=== PATIENT | female | born 1960 | race Caucasian/White ===

== ENCOUNTER 2018-06-17 11:47 | Emergency (ER) | payer OTHER ==
[2018-06-17 12:39] VITALS: BP 108/73
--- NOTE | 2018-06-17 12:55 | UC ---
Throat Pain/Nasal Anand HPI - HPI Summary HPI Summary: Pt c/o URI like symptoms that have not improved over the last 2-3 weeks, cough, sinus pressure and fatigue. . Pt has hx of sinusitis and chronic "sinus problems" Pt also,c/o fatigue. - History of Current Complaint Chief Complaint: UCRespiratory Stated Complaint: COLD SX'S Time Seen by Provider: 06/17/18 12:49 Hx Obtained From: Patient Hx Last Menstrual Period: age 50 ?: No Onset/Duration: Gradual Onset, Lasting Weeks, Still Present Severity: Moderate Pain Intensity: 0 Cough: Productive Associated Signs & Symptoms: Positive: Sinus Discomfort Related History: Prior ENT Surgery - Epiglottits Risk Factors Epiglottis Risk Factors: Negative - Allergies/Home Medications Allergies/Adverse Reactions: Allergies Allergy/AdvReac Type Severity Reaction Status Date / Time Penicillins Allergy Swelling Verified 06/17/18 12:40 cat, tree Allergy Congestion Uncoded 06/17/18 12:40 PMH/Surg Hx/FS Hx/Imm Hx Previously Healthy: Yes - Surgical History Surgical History: Yes Surgery Procedure, Year, and Place: [place]OM[place]- 1973- [place]. [id number] [place]. SINUS SURGERIES- 1997- [place]. TUBAL LIGATION- 1985. TUBAL REVERSAL- 2002. 2012 LAPAROSCOPIC GASTRIC BYPASS, [facility] [place] - Family History Known Family History: Positive: Cardiac Disease - Social History Occupation: Employed Full-time Lives: With Family Alcohol Use: None Substance Use Type: None Smoking Status (MU): Former Smoker Have You Smoked in the Last Year: No When Did the Patient Quit Smoking/Using Tobacco: 2008 Review of Systems All Other Systems Reviewed And Are Negative: Yes Constitutional: Positive: Fatigue Skin: Positive: Negative Eyes: Positive: Negative ENT: Positive: Nasal Discharge, Sinus Congestion, Sinus Pain/Tenderness Respiratory: Positive: Cough Cardiovascular: Positive: Negative Gastrointestinal: Positive: Negative Genitourinary: Positive: Negative Motor: Positive: Negative Neurovascular: Positive: Negative Musculoskeletal: Positive: Negative Neurological: Positive: Headache Psychological: Positive: Negative Is Patient Immunocompromised?: No Physical Exam Triage Information Reviewed: Yes Appearance: Ill-Appearing Vital Signs: Initial Vital Signs Temp 97.5 F 06/17/18 12:31 Pulse 71 06/17/18 12:31 Resp 18 06/17/18 12:31 BP 108/73 06/17/18 12:31 Pulse Ox 100 06/17/18 12:31 Vital Signs Reviewed: Yes Eye Exam: Normal ENT: Positive: Nasal congestion, Sinus tenderness Dental Exam: Normal Neck exam: Normal Respiratory Exam: Normal Respiratory: Positive: Normal breath sounds Cardiovascular Exam: Normal Musculoskeletal Exam: Normal Neurological Exam: Normal Psychological Exam: Normal Skin Exam: Normal Throat Pain/Nasal Course/Dx - Differential Dx/Diagnosis Differential Diagnosis/HQI/PQRI: Influenza, Sinusitis, URI Provider Diagnosis: Sinusitis, Cough in adult Discharge - Sign-Out/Discharge Documenting (check all that apply): Patient Departure All imaging exams completed and their final reports reviewed: No Studies - Discharge Plan Condition: Stable Disposition: HOME Prescriptions: Azithromycin TAB* [Zithromax TAB (Z-JACQUELINE) 250 mg #6 tabs] 2 tab PO .TODAY, THEN 1 DAILY #1 jacqueline Guaifenesin/Pseudoephedrne HCl [Mucinex D ER 600-60 mg Tablet] 1 each PO Q12H # 14 tab.er.12h predniSONE TAB* [Deltasone 20 MG TAB*] 20 mg PO DAILY #3 tab Patient Education Materials: Sinusitis (ED), Acute Cough (ED) Referrals: Eloy George MD [Primary Care Provider] - If Needed - Billing Disposition and Condition Condition: STABLE Disposition: Home
== END 2018-06-17 13:14 | disposition home or self-care (01) ==
LOC: UCCORT 11:47
DX: J32.9 Chronic sinusitis, unspecified (principal); R05 Cough; Z88.0 Allergy status to penicillin; Z87.891 Personal history of nicotine dependence
CPT/HCPCS: 99212; G0463

== ENCOUNTER → 2018-09-06 20:07 | Emergency (ER) | payer OTHER ==
[2018-09-06 20:46] LABS: ABS Basophils 0 10^3/ul (0-0.2); ABS Eosinophils 0.1 10^3/ul (0-0.6); ABS Lymphocytes 2.6 10^3/ul (1.0-4.8); ABS Monocytes 0.4 10^3/ul (0-0.8); ABS Neutrophils 3.7 10^3/ul (1.5-7.7); ABS Nucleated RBC 0 10^3/ul; Hematocrit 42 % (33-41); Hemoglobin 13.7 g/dL (12.0-16.0); Lymphocyte % 38.5 %; Mean Corpuscular HGB Conc 33 g/dL (31-36); Mean Corpuscular Hemoglobin 30 pg (27-31); Mean Corpuscular Volume 93 fL (80-97); Nucleated Red Blood Cells % 0.1; Platelet Count 195 10^3/uL (150-450); Red Cell Distribution Width 14 % (10.5-15); White Blood Count 6.9 10^3/uL (3.5-10.8)
[2018-09-06 20:52] LABS: INR 0.94 (0.77-1.02)
[2018-09-06 21:06] LABS: Albumin 4.5 g/dL (3.2-5.2); Albumin/Globulin Ratio 1.9 (1-3); BUN/Creatinine Ratio 22.6 (8-20); Calcium 9.8 mg/dL (8.6-10.3); EGFR African American 84.9 (>60); EGFR Non-African American 70.1 (>60); Globulin 2.4 g/dL (2-4); Total Bilirubin 0.4 mg/dL (0.2-1.0); Total Protein 6.9 g/dL (6.4-8.9)
[2018-09-06 21:52] LABS: TSH (Thyroid Stimulating Horm) 1.39 mcIU/mL (0.34-5.60)
[2018-09-06 22:05] LABS: Potassium 4.7 mmol/L (3.5-5.0)
--- NOTE | 2018-09-06 22:22 | ED ---
HPI Chest Pain - HPI Summary HPI Summary: This patient is a 57 year old F presenting to [facility] with a chief complaint of intermittent dull, aching left anterior chest pain radiating to her left shoulder since 1 month ago. The patient rates the pain 5/10 in severity. She saw her family doctor today who referred her here. Patient had a stress test last year which she passed. She is not on any medications currently. - History of Current Complaint Chief Complaint: EDChestPainROMI Time Seen by Provider: 09/06/18 21:58 Hx Obtained From: Patient Hx Last Menstrual Period: age 50 Onset/Duration: Started Weeks Ago - 1 month ago, Still Present Timing: Intermittent Initial Severity: Moderate Current Severity: Moderate Pain Intensity: 5 Pain Scale Used: 0-10 Numeric Chest Pain Location: Discrete at:, Left Anterior Chest Pain Radiates: Yes Chest Pain Radiates To:: Shoulder - Left Character: Other: - dull and aching Associated Signs and Symptoms: Positive: Chest Pain - intermittent dull, aching left anterior chest pain radiating to her left shoulder - Allergy/Home Medications Allergies/Adverse Reactions: Allergies Allergy/AdvReac Type Severity Reaction Status Date / Time Penicillins Allergy Swelling Verified 09/06/18 20:28 cat, tree Allergy Congestion Uncoded 09/06/18 20:28 PMH/Surg Hx/FS Hx/Imm Hx Endocrine/Hematology History: Denies: Hx Bone Marrow Disease, Hx Diabetes - 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, Hx Sickle Cell Disease, Hx Anemia Cardiovascular History: Denies: Hx Hypertension Respiratory History: Reports: Hx Sleep Apnea - FOR ABOUT 3 YEARS GI History: Reports: Hx Gastroesophageal Reflux Disease - CONTROL WITH MEDICATION, Hx Ulcer - HISTORY OF History: Denies: Hx Renal Disease Musculoskeletal History: Reports: Hx Arthritis - MINOR Sensory History: Reports: Hx Contacts or Glasses - GLASSES Denies: Hx Hearing Aid Opthamlomology History: Reports: Hx Contacts or Glasses - GLASSES Neurological History: Reports: Hx Headaches - HISTORY OF Psychiatric History: Reports: Hx Anxiety - ON MEDICATION, Hx Depression - ON MEDICATION - Surgical History Surgery Procedure, Year, and Place: APPENDECTOMY- 1973- . [id number] [place]. SINUS SURGERIES- 1997- AND [place] 2007. TUBAL LIGATION- 1985. TUBAL REVERSAL- 2002. 2011 [place]IC [place] [facility] [place] Anesthesia Reactions: No Infectious Disease History: No Infectious Disease History: Denies: Traveled Outside the [place] in Last 30 Days Comment Only: Hx Clostridium Difficile - TO BE TESTED FOR ON 04/03/12 - Family History Known Family History: Positive: Cardiac Disease - Social History Alcohol Use: None Substance Use Type: Reports: None Smoking Status (MU): Former Smoker Have You Smoked in the Last Year: No Review of Systems Negative: Fever Positive: Chest Pain - intermittent dull, aching left anterior chest pain radiating to her left shoulder All Other Systems Reviewed And Are Negative: Yes Physical Exam - Summary Physical Exam Summary: VITAL SIGNS: Reviewed. GENERAL: Patient is a well-developed and nourished FEMALE who is lying comfortable in the stretcher. Patient is not in any acute respiratory distress. HEAD AND FACE: No signs of trauma. No ecchymosis, hematomas or skull depressions. No sinus tenderness. EYES: PERRLA, EOMI x 2, No injected conjunctiva, no nystagmus. EARS: Hearing grossly intact. Ear canals and tympanic membranes are within normal limits. MOUTH: Oropharynx within normal limits. NECK: Supple, trachea is midline, no adenopathy, no JVD, no carotid bruit, no c- spine tenderness, neck with full ROM. CHEST: Symmetric, no tenderness at palpation LUNGS: Clear to auscultation bilaterally. No wheezing or crackles. CVS: Regular rate and rhythm, S1 and S2 present, no murmurs or gallops appreciated. ABDOMEN: Soft, non-tender. No signs of distention. No rebound no guarding, and no masses palpated. Bowel sounds are normal. EXTREMITIES: FROM in all major joints, no edema, no cyanosis or clubbing. NEURO: Alert and oriented x 3. No acute neurological deficits. Speech is normal and follows commands. SKIN: Dry and warm Triage Information Reviewed: Yes Vital Signs On Initial Exam: Initial Vitals Temp Pulse Resp BP Pulse Ox 96.8 F 58 16 118/93 99 09/06/18 20:20 09/06/18 20:20 09/06/18 20:20 09/06/18 20:20 09/06/18 20:20 Vital Signs Reviewed: Yes Diagnostics - Vital Signs Vital Signs Temp Pulse Resp BP Pulse Ox 09/06/18 21:50 59 118/83 98 09/06/18 21:20 62 123/75 95 09/06/18 21:19 65 97 09/06/18 20:20 96.8 F 58 16 118/93 99 - Laboratory Lab Results: Lab Results 09/06/18 09/06/18 09/06/18 Range/Units 20:40 20:40 20:40 WBC 6.9 (3.5-10.8) 10^3/uL RBC 4.50 (3.70-4.87) 10^6 /uL Hgb 13.7 (12.0-16.0) g/dL Hct 42 H (33-41) % MCV 93 (80-97) fL MCH 30 (27-31) pg MCHC 33 (31-36) g/dL RDW 14 (10.5-15) % Plt Count 195 (150-450) 10^3/uL MPV 9.0 (7.4-10.4) fL Neut % (Auto) 53.6 % Lymph % (Auto) 38.5 % [place] % (Auto) 6.4 % Eos % (Auto) 1.0 % Baso % (Auto) 0.5 % Absolute Neuts (auto) 3.7 (1.5-7.7) 10^3/ul Absolute Lymphs (auto) 2.6 (1.0-4.8) 10^3/ul Absolute Monos (auto) 0.4 (0-0.8) 10^3/ul Absolute Eos (auto) 0.1 (0-0.6) 10^3/ul Absolute Basos (auto) 0 (0-0.2) 10^3/ul Absolute Nucleated RBC 0 10^3/ul Nucleated RBC % 0.1 INR (Anticoag Therapy) 0.94 (0.77-1.02) Sodium 140 (135-145) mmol/L Potassium 4.7 (3.5-5.0) mmol/L Chloride 105 (101-111) mmol/L Carbon Dioxide 28 (22-32) mmol/L Anion Gap 7 (2-11) mmol/L BUN 19 (6-24) mg/dL Creatinine 0.84 (0.51-0.95) mg/dL Est GFR ( Amer) 84.9 (>60) Est GFR (Non-Af Amer) 70.1 (>60) BUN/Creatinine Ratio 22.6 H (8-20) Glucose 95 (70-100) mg/dL Lactic Acid (0.5-2.0) mmol/L Calcium 9.8 (8.6-10.3) mg/dL Total Bilirubin 0.40 (0.2-1.0) mg/dL AST 16 (13-39) U/L ALT 18 (7-52) U/L Alkaline Phosphatase 82 (34-104) U/L Troponin I 0.00 (<0.04) ng/mL B-Natriuretic Peptide (<=100) pg/mL Total Protein 6.9 (6.4-8.9) g/dL Albumin 4.5 (3.2-5.2) g/dL Globulin 2.4 (2-4) g/dL Albumin/Globulin Ratio 1.9 (1-3) TSH 1.39 (0.34-5.60) mcIU/mL 09/06/18 09/06/18 Range/Units 20:40 20:40 WBC (3.5-10.8) 10^3/uL RBC (3.70-4.87) 10^6 /uL Hgb (12.0-16.0) g/dL Hct (33-41) % MCV (80-97) fL MCH (27-31) pg MCHC (31-36) g/dL RDW (10.5-15) % Plt Count (150-450) 10^3/uL MPV (7.4-10.4) fL Neut % (Auto) % Lymph % (Auto) % [place] % (Auto) % Eos % (Auto) % Baso % (Auto) % Absolute Neuts (auto) (1.5-7.7) 10^3/ul Absolute Lymphs (auto) (1.0-4.8) 10^3/ul Absolute Monos (auto) (0-0.8) 10^3/ul Absolute Eos (auto) (0-0.6) 10^3/ul Absolute Basos (auto) (0-0.2) 10^3/ul Absolute Nucleated RBC 10^3/ul Nucleated RBC % INR (Anticoag Therapy) (0.77-1.02) Sodium (135-145) mmol/L Potassium (3.5-5.0) mmol/L Chloride (101-111) mmol/L Carbon Dioxide (22-32) mmol/L Anion Gap (2-11) mmol/L BUN (6-24) mg/dL Creatinine (0.51-0.95) mg/dL Est GFR ( Amer) (>60) Est GFR (Non-Af Amer) (>60) BUN/Creatinine Ratio (8-20) Glucose (70-100) mg/dL Lactic Acid 0.7 (0.5-2.0) mmol/L Calcium (8.6-10.3) mg/dL Total Bilirubin (0.2-1.0) mg/dL AST (13-39) U/L ALT (7-52) U/L Alkaline Phosphatase (34-104) U/L Troponin I (<0.04) ng/mL B-Natriuretic Peptide 21 (<=100) pg/mL Total Protein (6.4-8.9) g/dL Albumin (3.2-5.2) g/dL Globulin (2-4) g/dL Albumin/Globulin Ratio (1-3) TSH (0.34-5.60) mcIU/mL Result Diagrams: 09/06/18 20:40 09/06/18 20:40 Lab Statement: Any lab studies that have been ordered have been reviewed, and results considered in the medical decision making process. - Radiology Chest X-Ray Radiology Interpretation Completed By: ED Physician Summary of Radiographic Findings: 22:28. No acute findings. Pending official report. - EKG 20:15 Cardiac Rate: Bradycardia - 55 BPM EKG Rhythm: Sinus Rhythm Summary of EKG Findings: Normal axis. Normal interval. No ischemic changes. Chest Pain Course/Dx - Course Course Of Treatment: This patient is a 57 year old F presenting to [facility] with a chief complaint of intermittent dull, aching left anterior chest pain radiating to her left shoulder since 1 month ago. Patient's EKG showed bradycardia but was otherwise normal. Chest x-ray was normal. Patient will be d/c with dx of atypical chest pain. - Diagnoses Provider Diagnoses: Atypical chest pain Discharge - Sign-Out/Discharge Documenting (check all that apply): Patient Departure - D/C home Patient Received Moderate/Deep Sedation with Procedure: No - Discharge Plan Condition: Stable Disposition: HOME Patient Education Materials: Chest Pain (ED) Referrals: Eloy George MD [Primary Care Provider] - 2 Days Huy Hardin MD [Medical Doctor] - 2 Days Additional Instructions: PLEASE RETURN TO THE ED TO IMMEDIATELY FOR WORSENING OR CONCERNING SYMPTOMS. FOLLOW UP WITH THE LOGISTICS COORDINATOR, DR. HARDIN, FOR A CARDIAC STRESS TEST. - Billing Disposition and Condition Condition: STABLE Disposition: Home - Attestation Statements Document Initiated by Belle: Yes Documenting Scribe: Brooks Ruiz Provider For Whom Scribe is Documenting (Include Credential): Dalton Norton MD Scribe Attestation: Brooks Vasquez, scribed for Dalton Norton MD on 09/07/18 at 0556. Scribe Documentation Reviewed: Yes Provider Attestation: The documentation as recorded by the Brooks ochoa accurately reflects the service I personally performed and the decisions made by Sondra adorno MD Status of Scribe Document: Viewed
[2018-09-06 22:40] VITALS: BP 110/80
== END | disposition home or self-care (01) ==
LOC: ED 20:07
DX: R07.89 Other chest pain (principal); Z87.891 Personal history of nicotine dependence; Z88.0 Allergy status to penicillin
CPT/HCPCS: 36415; 71045; 80053; 83605; 83880; 84443; 84484; 85025; 85610; 93005; 99282